=== PATIENT | female | born 1965 | race Caucasian/White ===

== ENCOUNTER 2018-04-29 04:15 | Emergency (ER) | payer MEDICAID ==
[~2018-04-29] VITALS: Ht 152.4 cm; Wt 86.6 kg
[2018-04-29 04:22] VITALS: Ht 152.4 cm; Wt 86.6 kg
[2018-04-29 06:22] VITALS: BP 129/82
== END 2018-04-29 06:22 | disposition home or self-care (01) ==
LOC: ED 04:15
DX: G89.29 Other chronic pain (principal); M54.5 Low back pain; I10 Essential (primary) hypertension; Z98.890 Other specified postprocedural states
CPT/HCPCS: J1885

== ENCOUNTER 2018-05-17 13:56 | Emergency (ER) | payer MEDICAID ==
[~2018-05-17] VITALS: Ht 152.4 cm; Wt 83.5 kg
[2018-05-17 14:02] VITALS: Ht 152.4 cm; Wt 83.5 kg
[2018-05-17 16:34] VITALS: BP 150/82
== END 2018-05-17 17:13 | disposition home or self-care (01) ==
LOC: ED 13:56
DX: K59.00 Constipation, unspecified (principal); N39.0 Urinary tract infection, site not specified; K64.9 Unspecified hemorrhoids; I10 Essential (primary) hypertension; E05.90 Thyrotoxicosis, unspecified without thyrotoxic crisis or storm; Z90.49 Acquired absence of other specified parts of digestive tract; Z98.890 Other specified postprocedural states; Z98.84 Bariatric surgery status
CPT/HCPCS: Q0162

== ENCOUNTER 2019-06-21 06:40 | Emergency (ER) | payer OTHER ==
[~2019-06-21] VITALS: Ht 152.4 cm; Wt 66.3 kg
[2019-06-21 06:44] VITALS: BP 125/42; Ht 152.4 cm; Wt 66.3 kg
== END 2019-06-21 07:46 | disposition home or self-care (01) ==
LOC: ED 06:40
DX: M65.261 Calcific tendinitis, right lower leg (principal); I10 Essential (primary) hypertension; E05.90 Thyrotoxicosis, unspecified without thyrotoxic crisis or storm; Z87.19 Personal history of other diseases of the digestive system
CPT/HCPCS: Q0092